=== PATIENT | male | born 1975 | race Caucasian/White ===

== ENCOUNTER 2017-03-18 07:51 | Emergency (ER) | payer OTHER ==
--- NOTE | ~2017-03-18 | EKG ---
PATIENT: BRANDY NAVARRO UNIT #: [id number] Ventricular Rate: 69 BPM Atrial Rate: 69 BPM P-R Interval: 196 ms QRS Duration: 76 ms Q-T Interval: 362 ms QTC Calculation(Bezet): 387 ms P [place]: -11 degrees Calculated R [place]: 3 degrees Calculated T [place]: 2 degrees Diagnosis Line: Normal sinus rhythm Diagnosis Line: Minimal voltage criteria for LVH, may be normal Diagnosis Line: variant Diagnosis Line: Inferior infarct , age undetermined Diagnosis Line: Abnormal ECG Diagnosis Line: When compared with ECG of 05-JUL-2013 08:17, Diagnosis Line: No significant change was found Diagnosis Line: Confirmed by DENY FARLEY MD ([id number]) on Diagnosis Line: 03/19/2017 4:45:49 PM INTERPRETING MD: MARTINE WATSON
--- NOTE | ~2017-03-18 | CT71 ---
[facility] A Service [facility] RADIOLOGY TEXT RESULTS PATIENT: BRANDY NAVARRO LOCATION: SED : [birth year] UNIT #: [id number] AGE: [address]: Gt Russell MD SEX: M ORDER DR: [id number] [place] [id number] E MR#: [id number] Acc #: [id number] NAME: BRANDY NAVARRO : 1975 SEX: M STUDY DATE/TIME: 03/18/2017 9:12 UNIT: SED ROOM: STUDY DESCRIPTION: CT Head Wo Contrast Attending Physician: Gt Russell M.D. Ordering Physician: Gt Russell M.D. Primary Care Physician: Bruce Mayberry M.D. MEDICAL IMAGING REPORT This report is preliminary unless electronic signature is present. EXAM Head CT without contrast. HISTORY Right arm numbness and coldness beginning yesterday afternoon. TECHNIQUE Axial images were obtained without contrast. This CT exam was performed with one or more of the following radiation dose reduction techniques: automatic exposure control, adjustment of mA and/or kV according to patient size, and iterative reconstruction. FINDINGS Mild ventriculomegaly is noted. There is no evidence of mass lesion, hemorrhage, or edema. No midline shift is seen. The temporal lobes are symmetric. Extraaxial structures are unremarkable. IMPRESSION Mild ventriculomegaly likely from mild central atrophy. No acute findings. Otherwise negative. Dictated by... Yo Mchugh M.D. THIS IS AN ELECTRONICALLY VERIFIED REPORT Yo Mchugh M.D. at 03/19/2017 10:30 AM RLF/roxanne TD: 03/18/2017 12:14 [facility] A Service [facility] RADIOLOGY TEXT RESULTS PATIENT: BRANDY NAVARRO LOCATION: SED : [birth year] UNIT #: [id number] AGE: [address]: Gt Russell MD SEX: M ORDER DR: OSWALDO #: [id number] MEDICAL IMAGING REPORT Page 1 of 1
--- NOTE | ~2017-03-18 | CT52 ---
[facility] A Service of [facility] RADIOLOGY TEXT RESULTS PATIENT: BRANDY NAVARRO LOCATION: SED : [birth year] UNIT #: [id number] AGE: [address]: Gt Russell MD SEX: M ORDER DR: [id number] [place] [id number] E MR#: [id number] Acc #: [id number] NAME: BRANDY NAVARRO : 1975 SEX: M STUDY DATE/TIME: 03/18/2017 9:15 UNIT: SED ROOM: STUDY DESCRIPTION: CT Cervical Spine Wo Cont Attending Physician: Gt Russell M.D. Ordering Physician: Gt Russell M.D. Primary Care Physician: Bruce Mayberry M.D. MEDICAL IMAGING REPORT This report is preliminary unless electronic signature is present. EXAM Cervical spine CT. HISTORY Right arm numbness beginning yesterday afternoon with coldness. TECHNIQUE Thin section imaging was obtained from the skull base to the upper thoracic spine and evaluated with bone and soft tissue windows with multiplanar reformats. This CT exam was performed with one or more of the following radiation dose reduction techniques: automatic exposure control, adjustment of mA and/or kV according to patient size, and iterative reconstruction. FINDINGS Mild degenerative changes are seen at the cervical discs from C4- ___T1____ with small anterior osteophytes and cervical straightening noted. Cervical spinal canal is widely patent at all levels. No significant foraminal stenosis is seen at any level. No fractures or destructive bone lesions are seen. No paraspinous soft tissue masses are noted. Cervical facets are intact at each level. IMPRESSION Mild degenerative disc disease, C4-___T1____. Otherwise negative. Dictated by... Yo Mchugh M.D. THIS IS AN ELECTRONICALLY VERIFIED REPORT [facility] A Service of [facility] RADIOLOGY TEXT RESULTS PATIENT: BRANDY NAVARRO LOCATION: SED : [birth year] UNIT #: [id number] AGE: [address]: Gt Russell MD SEX: M ORDER DR: Yo Mchugh M.D. at 03/19/2017 10:28 AM HA/fran TD: 03/18/2017 12:17 JOB #: [id number] MEDICAL IMAGING REPORT Page 1 of 1
[~2017-03-18 07:51] MED LIST: NAPROSYN500 MG PO; NO MEDICATIONS; PERCOCET 5-3251 TAB PO; PRILOSEC PO; PRILOSEC20 MG PO
[2017-03-18 08:49] LABS: BASOPHIL% 0.7 % (0-2.5); EOSINOPHIL# 0.2 X10e3 (0-0.7); EOSINOPHIL% 3.2 % (0.0-7.0); HEMATOCRIT 42.6 % (38.0-50.0); HEMOGLOBIN 14.5 gm/dL (13.0-16.0); LYMPHOCYTE# 2.1 X10e3 (1.0-3.5); LYMPHOCYTE% 32.4 % (17.0-45.0); MEAN CELL VOLUME 91.6 FL (83-96); MEAN CORPUSCULAR HEMOGLOBIN 31.2 PG (28-34); MEAN PLATELET VOLUME 9.2 FL (6.5-11.5); MONOCYTE# 0.5 X10e3 (0-1.0); MONOCYTE% 7.3 % (3.0-12.0); NEUTROPHIL# 3.7 X10e3 (1.5-7.1); NEUTROPHIL% 56.4 % (40-75); PLATELET COUNT 239 X10e3 (140-420); RED BLOOD COUNT 4.65 X10e (3.90-5.60); RED CELL DISTRIBUTION WIDTH 13.5 % (11.0-15.5); WHITE BLOOD COUNT 6.5 X10e3 (4.0-10.5)
[2017-03-18 08:58] LABS: POC - CKMB <1.0 ng/mL (0.0-7.9); POC - TROPONIN <0.05 ng/mL (<=0.05)
[2017-03-18 08:59] LABS: DIFF IND NO
[2017-03-18 09:02] LABS: INR 0.9; PROTHROMBIN TIME (PATIENT) 10.5 SECONDS (9.5-12.4)
[2017-03-18 09:09] LABS: PARTIAL THROMBOPLASTIN TIME 27.6 SECONDS (25.6-38.1)
[2017-03-18 09:11] LABS: ALBUMIN SERUM 4.3 g/dL (3.5-5.0); ALKALINE PHOSPHATASE 59 U/L (32-92); ALT (SGPT) 21 U/L (10-40); AST (SGOT) 19 U/L (10-42); BILIRUBIN,TOTAL 0.6 mg/dL (0.2-2.0); BLOOD UREA NITROGEN 15 mg/dL (9-23); BUN/CREATININE RATIO 21.42; CALCIUM SERUM 8.5 mg/dL (8.4-10.2); CARBON DIOXIDE 24 mmol/L (22-31); CHLORIDE 103 mmol/L (100-111); CREATININE SERUM 0.7 mg/dL (0.6-1.4); GLOM FILT RATE Estimated 117.3 mL/min (>60); GLUCOSE FASTING 112 mg/dL (70-110); POTASSIUM 3.8 mmol/L (3.5-5.1); PROTEIN TOTAL SERUM 7.3 g/dL (6.0-8.3); SODIUM 131 mmol/L (135-145)
[2017-03-18 09:17] LABS: BILIRUBIN, DIRECT <0.1 mg/dL (0.0-0.2); BILIRUBIN,INDIRECT 0.5 mg/dL (0.0-0.9)
== END 2017-03-18 10:26 | disposition home or self-care (01) ==
LOC: SED 07:51
PROVIDERS: Emergency Medicine
DX: R20.2 Paresthesia of skin (principal); F17.210 Nicotine dependence, cigarettes, uncomplicated
CPT/HCPCS: 36415; 70450; 72125; 80048; 80076; 82553; 82947; 84484; 85025; 85610; 85730; 93005; 99284